=== PATIENT | male | born 1955 | race Hispanic/Latino ===

== ENCOUNTER 2019-03-05 12:43 | Emergency (ER) | payer SELFPAY ==
[2019-03-05 13:52] LABS: BASO % 0.5 % (0.0-2.0); EOS % 0.4 % (0.0-4.0); LYMPH # 1.3 K/uL (1.0-4.3); LYMPH % 19.9 % (20.0-40.0); MEAN CELL VOLUME 83.8 fl (80.0-94.0); MEAN CORPUSCULAR HEMOGLOBIN 27.8 pg (27.0-31.0); MEAN CORPUSCULAR HGB CONC 33.2 g/dL (33.0-37.0); MEAN PLATELET VOLUME 8.9 fl (7.2-11.7); MONO # 0.5 K/uL (0.0-0.8); MONO % 6.9 % (0.0-10.0); NEUT # 4.7 K/uL (1.8-7.0); NEUT % 72.3 % (50.0-75.0); NRBC % 0.1 % (0.0-0.0); RBC 3.95 Mil/uL (4.40-5.90); RED CELL DISTRIBUTION WIDTH 12.6 % (11.5-14.5); WHITE BLOOD COUNT 6.5 K/uL (4.8-10.8)
[2019-03-05 13:58] LABS: ALB/GLOB RATIO 1.1 (1.0-2.1); ALBUMIN 3.6 g/dL (3.5-5.0); ALT/SGPT 41 U/L (21-72); AST/SGOT 33 U/L (17-59); BLOOD UREA NITROGEN 25 mg/dl (9-20); CALCIUM 8.2 mg/dL (8.4-10.2); GFR NON-AFRICAN AMERICAN > 60
[2019-03-05 14:28] LABS: SQUAMOUS EPITHIAL 1 /hpf (0-5); URINE BILIRUBIN NEGATIVE (NEGATIVE); URINE BLOOD SMALL (NEGATIVE); URINE CLARITY CLOUDY (Clear); URINE COLOR YELLOW (YELLOW); URINE GLUCOSE (UA) NEG (NEGATIVE); URINE PROTEIN 30 mg/dL (NEGATIVE)
--- NOTE | 2019-03-05 14:31 | ED PDOC ---
HPI: Male Pain Chief Complaint (Nursing): Male Genitourinary Chief Complaint (Provider): Male Genitourinary History Per: [employer] [facility] ([id number]) History/Exam Limitations: language barrier Onset/Duration Of Symptoms: Days (x4) Current Symptoms Are (Timing): Still Present Additional Complaint(s): Diego Sanabria is a 63 year old male with a past medical history of diabetes, who presents to the emergency department complaining of left testicular pain and swelling for the past x4 days. Patient was seen at the clinic and was sent here. He states the pain is associated with dysuria but denies having any urethral discharge or sexual activity. Patient further denies any injury, hematuria, fever, or chills, abdominal pain, nausea or vomiting. PMD: clinic Past Medical History Reviewed: Historical Data, Nursing Documentation, Vital Signs Vital Signs: Last Vital Signs Temp 98.3 F 03/05/19 13:02 Pulse 96 H 03/05/19 13:02 Resp 18 03/05/19 13:02 BP 116/71 03/05/19 13:02 Pulse Ox 99 03/05/19 13:02 - Medical History PMH: Diabetes - Surgical History Surgical History: No Surg Hx - Family History Family History: States: Unknown Family Hx - Social History Current smoker - smoking cessation education provided: No Ex-Smoker (has not smoked in the last 12 months): No Alcohol: None Drugs: Denies - Home Medications Home Medications: Ambulatory Orders Medication Instructions Recorded Amoxicillin/Clavulanate [Augmentin 1 tab PO BID 10 Days #20 tab 03/05/19 875 MG-125 MG] Ibuprofen [Motrin Tab] 600 mg PO Q6 PRN #20 tab 03/05/19 - Allergies Allergies/Adverse Reactions: Allergies Allergy/AdvReac Type Severity Reaction Status Date / Time No Known Allergies Allergy Verified 03/05/19 13:01 Review of Systems ROS Statement: Except As Marked, All Systems Reviewed And Found Negative Genitourinary Male: Positive for: Dysuria, Other (left testicular pain). Negati ve for: Penile Discharge Physical Exam - Reviewed Nursing Documentation Reviewed: Yes Vital Signs Reviewed: Yes - Physical Exam Comments: SKIN: Warm, dry; (-) cyanosis. CHEST AND RESPIRATORY: (-) wheezing; (-) rales, (-) rhonchi, (-) rub; breath sounds equal bilaterally. HEART AND CARDIOVASCULAR: (-) irregularity; (-) murmur, (-) gallop. ABDOMEN AND GI: Soft, (-) tenderness. GENITAL: (+) left testicle with moderate to severe swelling; (+) erythema, (+) tenderness on palpation, (-) circumcision, (-) foreskin or glans penis swelling; (-) gangrene, (-) urethral discharge. SHELBY Perez was present with me during the entire examination LYMPHATIC: (-) palpable lymphadenopathy EXTREMITIES: (-) deformity. - Laboratory Results Result Diagrams: 03/05/19 13:30 03/05/19 13:30 Lab Results: Total Bilirubin 0.8 mg/dl (0.2-1.3) 03/05/19 13:30 AST 33 U/L (17-59) 03/05/19 13:30 ALT 41 U/L (21-72) 03/05/19 13:30 Alkaline Phosphatase 76 U/L (38-126) 03/05/19 13:30 Total Protein 6.9 G/DL (6.3-8.2) 03/05/19 13:30 Albumin 3.6 g/dL (3.5-5.0) 03/05/19 13:30 Globulin 3.3 gm/dL (2.2-3.9) 03/05/19 13:30 Albumin/Globulin Ratio 1.1 (1.0-2.1) 03/05/19 13:30 - ECG O2 Sat by Pulse Oximetry: 99 (RA) Pulse Ox Interpretation: Normal Medical Decision Making Medical Decision Making: Time: 1330 Plan: --CMP --CBC with differential --Chlamydia/GC --Toradol 30 mg IVP --urine culture --Urinalysis --Saline Lock --Testes Duplex US US results Date of service: 03/05/2019 HISTORY: L testicle swelling, pain, redness TECHNIQUE: Realtime sonography through the scrotum with color and doppler flow. COMPARISON: None Available. FINDINGS: RIGHT TESTICLE: Measures 4.8 x 2.3 x 3.1 cm. Normal echotexture and flow. RIGHT EPIDIDYMIS: Epididymal head measures 0.9 x 0.7 x 0.8 cm. Grossly unremarkable appearance with normal flow. LEFT TESTICLE: Measures 3.4 x 1.5 x 2.6 cm. Normal echotexture and flow. The mid to lower pole left testicle is slightly compressed by enlargement of the body and tail the pancreas. LEFT EPIDIDYMIS: Epididymal head measures 0.8 x 0.7 x 0.8 cm. The tail is enlarged as well as the body with the tail measuring 3.2 x 2.3 x 2.1 cm, heterogeneous in echotexture and increase in color blood flow suggestive gross epididymitis. HYDROCELE: Minimal left hydrocele identified. VARICOCELE: None. OTHER FINDINGS: None. IMPRESSION: Gross left epididymal enlargement and hyperemia is seen at the level the body and tail most likely reflecting epididymitis though other etiologies are possible. Clinically correlate further. The mid to lower pole left testicle is impressed by enlargement of the segments of the epididymis. Minimal left hydrocele. No evidence of testicular torsion or mass bilaterally. 17:[address] Hernandez (urology) reports to treat as epididmyitis, due to age and denial of sexual activity recommends Augmenting BID [id number] and f/u outpatient 17:10 re eval pt reports he is feeling better, pain is improved, US shows epidid ymitis, no torsion, evaluation shows no signs of gangrene, no leukocytosis, [facility] language [id number] used to discuss results, diagnosis, treatment, strict return precautions and importance of f/u with pt who is understanding, in agreement and stable for dc Scribe Attestation: Documented by Clayton Boo acting as a scribe for Rafa Holm PA-C. Provider Scribe Attestation: All medical record entries made by the Scribe were at my direction and personally dictated by me. I have reviewed the chart and agree that the record accurately reflects my personal performance of the history, physical exam, medical decision making, and the department course for this patient. I have also personally directed, reviewed, and agree with the discharge instructions and disposition. Disposition - Clinical Impression Clinical Impression: Epididymitis - Patient ED Disposition Is Patient to be Admitted: No Counseled Patient/Family Regarding: Studies Performed, Diagnosis, Need For Followup, Rx Given - Disposition Referrals: [facility] [Outside] Hussein Hernandez MD [Staff Provider] - Disposition: Routine/Home Disposition Time: 17:15 Condition: IMPROVED Additional Instructions: [place] los antibiticos segn lo prescrito hasta que termine. [place] los medicamentos segn lo prescrito para el dolor. Regrese a la ED para los sntomas nuevos o que empeoran, fiebre> 100.4, color vidal del testculo, empeoramiento del dolor, aumento de la hinchazn o enrojecimiento, no puede orinar. Es muy importante hacer un seguimiento con el urlogo segn lo indicado o con pagan mdico lo antes posible. [place] por dejarnos cuidar de ti hoy. Usted fue tratado por amirah epididimitis, infeccin en el testculo. La atencin mdica de emergencia que recibi hoy se dirigi a becky sntomas agudos. Si le recetaron algn medicamento, llnelo y tmelo segn las indicaciones. Los sntomas pueden tardar varios johnson en resolve rse. Regrese al Departamento de Emergencias si becky sntomas empeoran, no mejoran o si tiene otros problemas. Comunquese con pagan mdico dentro de 2 johnson para amirah nueva evaluacin y carlos manuel un seguimiento o llame a cinthia de los mdicos / clnicas a los que york sido referido y que figuran en el formulario de Informacin de visita al paciente que se incluye en pagan paquete de goran. Lleve todos los documentos que recibi al momento del goran junto con los medicamentos que est tomando para pagan visita de seguimiento. Nuestro tratamiento no puede reemplazar la atencin mdica continua por parte de un proveedor de atencin primaria (PCP) fuera del departamento de emergencias. Prescriptions: Amoxicillin/Clavulanate [Augmentin 875 MG-125 MG] 1 tab PO BID 10 Days #20 tab Ibuprofen [Motrin Tab] 600 mg PO Q6 PRN #20 tab PRN Reason: Pain, Moderate (4-7) Instructions: Epididymitis (DC), Testicle Pain (ED) Forms: Fixed - Parking Tickets (Swazi) Print Language: IRISH - POA Present On Arrival: None Results - Diagnostic Imaging Results Radiology Results Testicular Ultrasound 03/05/19 13:19 IMPRESSION: Gross left epididymal enlargement and hyperemia is seen at the level the body and tail most likely reflecting epididymitis though other etiologies are possible. Clinically correlate further. The mid to lower pole left testicle is impressed by enlargement of the segments of the epididymis. Minimal left hydrocele. No evidence of testicular torsion or mass bilaterally. - Lab Results Lab Results: 03/05/19 03/05/19 03/05/19 13:30 13:30 13:30 WBC 6.5 RBC 3.95 L Hgb 11.0 L Hct 33.1 L MCV 83.8 MCH 27.8 MCHC 33.2 RDW 12.6 Plt Count 210 MPV 8.9 Neut % (Auto) 72.3 Lymph % (Auto) 19.9 L [place] % (Auto) 6.9 Eos % (Auto) 0.4 Baso % (Auto) 0.5 Neut # (Auto) 4.7 Lymph # (Auto) 1.3 [place] # (Auto) 0.5 Eos # (Auto) 0.0 Baso # (Auto) 0.0 Sodium 134 Potassium 4.1 Chloride 100 Carbon Dioxide 23 Anion Gap 15 BUN 25 H Creatinine 0.8 Est GFR ( Amer) > 60 Est GFR (Non-Af Amer) > 60 Random Glucose 123 H Calcium 8.2 L Total Bilirubin 0.8 AST 33 ALT 41 Alkaline Phosphatase 76 Total Protein 6.9 Albumin 3.6 Globulin 3.3 Albumin/Globulin Ratio 1.1 Urine Color Yellow Urine Clarity Cloudy Urine pH 5.0 Ur Specific [place] 1.027 Urine Protein 30 Urine Glucose (UA) Neg Urine Ketones Trace Urine Blood Small Urine Nitrate Negative Urine Bilirubin Negative Urine Urobilinogen 1.0 Ur Leukocyte Esterase Mod Urine RBC (Auto) 34 H Urine Microscopic WBC 118 H Ur Squamous Epith Cells 1 Urine Bacteria Rare
[2019-03-05 14:34] LABS: URINE LEUKOCYTE ESTERASE MOD Leu/uL (Negative)
[2019-03-05 14:35] LABS: URINE BACTERIA RARE (<OCC)
--- NOTE | 2019-03-05 16:33 | US ---
Date of service: 03/05/2019 HISTORY: R testicle swelling, pain, redness TECHNIQUE: Realtime sonography through the scrotum with color and doppler flow. COMPARISON: None Available. FINDINGS: RIGHT TESTICLE: Measures 4.8 x 2.3 x 3.1 cm. Normal echotexture and flow. RIGHT EPIDIDYMIS: Epididymal head measures 0.9 x 0.7 x 0.8 cm. Grossly unremarkable appearance with normal flow. LEFT TESTICLE: Measures 3.4 x 1.5 x 2.6 cm. Normal echotexture and flow. The mid to lower pole left testicle is slightly compressed by enlargement of the body and tail the pancreas. LEFT EPIDIDYMIS: Epididymal head measures 0.8 x 0.7 x 0.8 cm. The tail is enlarged as well as the body with the tail measuring 3.2 x 2.3 x 2.1 cm, heterogeneous in echotexture and increase in color blood flow suggestive gross epididymitis. HYDROCELE: Minimal left hydrocele identified. VARICOCELE: None. OTHER FINDINGS: None. IMPRESSION: Gross left epididymal enlargement and hyperemia is seen at the level the body and tail most likely reflecting epididymitis though other etiologies are possible. Clinically correlate further. The mid to lower pole left testicle is impressed by enlargement of the segments of the epididymis. Minimal left hydrocele. No evidence of testicular torsion or mass bilaterally.
[2019-03-05] MEDS ORDERED: Amoxicillin-Clav 875-125 mg Tab PO STA (17:10)
[2019-03-05] MEDS ORDERED: Amoxicillin-Clav 875-125 mg Tab PO ONE (17:15)
[2019-03-05 18:03] VITALS: BP 128/68; PULSE 86; RESP 16; TEMP 98
[2019-03-05 19:53] VITALS: O2SAT 99
== END 2019-03-05 17:59 | disposition home or self-care (01) ==
LOC: H.ER 12:43
DX: N45.1 Epididymitis (principal)
CPT/HCPCS: 80053; 81003; 85025; 87086; 87181; 87491; 87591; 93975; 96374; 99283; J1885